=== PATIENT | male | born 1980 | race American Indian/Alaskan Native ===

== ENCOUNTER 2021-09-08 09:39 | Emergency (ER) | payer MEDICAID ==
[2021-09-08] MEDS ORDERED: CLINDAMYCIN 600 MG/50 mL 600 MG/50 ML BAG IV ONE (12:02)
[2021-09-08] MEDS ORDERED: SODIUM CHLORIDE 0.9% 1000 ML 1,000 ML IV ONE (12:02)
[2021-09-08] MEDS ORDERED: IBUPROFEN 800 MG TAB PO ONE (12:02)
--- NOTE | 2021-09-08 12:04 | Emergency Department Report ---
ED ENT HPI - General Chief complaint: Dental/Oral Stated complaint: SWOLLEN/LUMP ON JAW Time Seen by Provider: 09/08/21 12:02 Source: patient Mode of arrival: Ambulatory Limitations: No Limitations - History of Present Illness Initial comments: Patient is a 40-year-old male that comes to the emergency room with right mandibular dental pain and swelling. No trismus. No Ludewig's. No abscess. He is talking without difficulty. He is controlling secretions. ABCs intact. No hypotension, tachycardia or fever MD complaint: tooth pain -: Gradual, days(s) Severity scale (0 -10): 3 Quality: aching Consistency: constant Improves with: none Worsens with: none Context- Dental: history of dental caries Associated Symptoms: gum swelling, toothache - Related Data Previous Rx's Medication Instructions Recorded Last Taken Type Clindamycin [Clindamycin CAP] 300 mg PO Q8H #30 cap 09/08/21 Unknown Rx Allergies Allergy/AdvReac Type Severity Reaction Status Date / Time No Known Allergies Allergy Verified 09/08/21 10:56 ED Dental HPI - General Chief complaint: Dental/Oral Stated complaint: SWOLLEN/LUMP ON JAW Time Seen by Provider: 09/08/21 12:02 Source: patient Mode of arrival: Ambulatory Limitations: No Limitations - Related Data Previous Rx's Medication Instructions Recorded Last Taken Type Clindamycin [Clindamycin CAP] 300 mg PO Q8H #30 cap 09/08/21 Unknown Rx Allergies Allergy/AdvReac Type Severity Reaction Status Date / Time No Known Allergies Allergy Verified 09/08/21 10:56 ED Review of Systems ROS: Stated complaint: SWOLLEN/LUMP ON JAW Other details as noted in HPI Comment: All other systems reviewed and negative ED Past Medical Hx - Past Medical History Previous Medical History?: No - Surgical History Past Surgical History?: No - Family History Family history: no significant - Social History Smoking Status: Current Every Day Smoker Substance Use Type: Alcohol - Medications Home Medications: Home Medications Medication Instructions Recorded Confirmed Last Taken Type Clindamycin [Clindamycin CAP] 300 mg PO Q8H #30 cap 09/08/21 Unknown Rx ED Physical Exam - General Limitations: No Limitations General appearance: alert, in no apparent distress - Head Head exam: Present: atraumatic, normocephalic - Eye Eye exam: Present: normal appearance - ENT ENT exam: Present: mucous membranes moist - Neck Neck exam: Present: normal inspection - Respiratory Respiratory exam: Present: normal lung sounds bilaterally. Absent: respiratory distress - Cardiovascular Cardiovascular Exam: Present: regular rate, normal rhythm. Absent: systolic murmur, diastolic murmur, rubs, gallop - GI/Abdominal GI/Abdominal exam: Present: soft, normal bowel sounds - Rectal Rectal exam: Present: deferred - Extremities Exam Extremities exam: Present: normal inspection - Back Exam Back exam: Present: normal inspection - Neurological Exam Neurological exam: Present: alert, oriented X3 - Psychiatric Psychiatric exam: Present: normal affect, normal mood - Skin Skin exam: Present: warm, dry, intact, normal color. Absent: rash ED Course Vital Signs 09/08/21 09/08/21 10:56 14:21 Temperature 99.1 F Pulse Rate 72 Respiratory 16 Rate Blood Pressure 152/81 124/70 [Left] O2 Sat by Pulse 98 Oximetry ED Medical Decision Making - Lab Data Result diagrams: 09/08/21 12:12 09/08/21 12:12 - Medical Decision Making Labs 09/08/21 09/08/21 12:12 12:12 WBC 14.3 H RBC 4.79 Hgb 14.2 Hct 43.3 MCV 90 MCH 30 MCHC 33 RDW 14.6 Plt Count 169 Sodium 138 Potassium 4.4 Chloride 103.0 Carbon Dioxide 23 Anion Gap 16 BUN 10 Creatinine 1.0 Estimated GFR > 60 BUN/Creatinine Ratio 10 Glucose 82 Calcium 9.4 Vital Signs 09/08/21 09/08/21 10:56 14:21 Temperature 99.1 F Pulse Rate 72 Respiratory 16 Rate Blood Pressure 152/81 124/70 [Left] O2 Sat by Pulse 98 Oximetry Labs noted. Patient given a liter normal saline and IV clindamycin. He was medicated for pain. He was also given Solu-Medrol for swelling. During his stay ABCs remained intact. Vital signs stable. He is taking p.o. No trismus, abscess, Ludewig's. Patient has been educated on the importance of following up with a dentist to get his dental caries treated. He verbalizes understanding. Patient being discharged home with discharge plan of care including diet, activities, medications and follow-up. He verbalizes understanding - Differential Diagnosis Dental caries/abscess Critical care attestation.: If time is entered above; I have spent that time in minutes in the direct care of this critically ill patient, excluding procedure time. ED Disposition Clinical Impression: Dental abscess Disposition: 01 HOME / SELF CARE / HOMELESS Is pt being admited?: No Does the pt Need Aspirin: No Condition: Stable Instructions: Dental Abscess, [id number] Additional Instructions: Motrin or Tylenol for pain Stay well-hydrated with water Follow-up with dentist as soon as possible Take antibiotic that I prescribed to you today until it is gone. Prescriptions: Clindamycin [Clindamycin CAP] 300 mg PO Q8H #30 cap Referrals: [facility] [Outside] - 3-5 Days Time of Disposition: 13:05
[2021-09-08 12:28] LABS: Hematocrit 43.3 % (35.5-45.6); Hemoglobin 14.2 gm/dl (11.8-15.2); Mean Corpuscular HGB Conc 33 % (32-34); Mean Corpuscular Volume 90 fl (84-94); Platelet Count 169 K/mm3 (140-440); Red Blood Count 4.79 M/mm3 (3.65-5.03); Red Cell Distribution Width 14.6 % (13.2-15.2)
[2021-09-08] MEDS ORDERED: methylPREDNISolone Sod Suc 500 MG in SODIUM CHLORIDE 0.9% 100 ML IV ONE (12:30)
[2021-09-08 12:50] LABS: BUN/Creatinine Ratio 10; Blood Urea Nitrogen 10 mg/dL (9-20); Calcium 9.4 mg/dL (8.4-10.2); Hemolysis Index 10
[2021-09-08 14:24] VITALS: BP 124/70
== END 2021-09-08 14:21 | disposition home or self-care (01) ==
LOC: ED 09:39
DX: L02.91 Cutaneous abscess, unspecified (principal); F17.200 Nicotine dependence, unspecified, uncomplicated; F10.20 Alcohol dependence, uncomplicated
CPT/HCPCS: 36415; 80048; 85027; 96365; 96367; 99283; J2930; J7030; J7502